=== PATIENT | male | born 1945 | race Caucasian/White ===

== ENCOUNTER 2024-05-21 06:58 | Observation (INO) ==
--- NOTE | 2024-05-21 08:02 | Emergency Department Note ---
Impression & Plan Stroke-like symptoms, Cough, Syncope ED Provider Note Provider: Akin Baltazar MD CHIEF COMPLAINT: Dizziness, cough, fall HISTORY OF PRESENT ILLNESS: Patient is a 79-year-old gentleman past medical history including hypertension and prostate issues presenting here today stating of the past week his intermittent blurry vision and dizziness. Patient states yesterday he did suffer a fall but denies significant injury from this. Fell a week or 2 ago in the [place] walking his dog as well. Patient reports he has had several days of cough as well. Somewhat productive nature of the cough. Has been going to the gym however. Denies any chest pain or abdominal pain. Denies any headache. CT believes he needs in his glasses when his glasses off the blurriness transitions low bit worse. Has noted more when he changes position at times. Has a night Of alcohol every night but denies any daily alcohol use or that he is an alcoholic. Denies any injury to the extremities or significant swelling. Denies numbness or tingling in the extremities or speech issues. Patient states his just concerned that he seemed little bit off and had this slightly off this and by his report. PAST MEDICAL HISTORY: As noted above MEDICATIONS: Reviewed home medications SOCIAL HISTORY: Resides at home PHYSICAL EXAM: GENERAL: alert and oriented in no acute distress on stretcher Head: normocephalic and atraumatic EYES: No injection, discharge or icterus. PERRL, EOMI. NECK: Trachea midline. Supple. ENT: Mucous membranes pink and moist. LUNGS: Airway patent. No retractions. Breath sounds clear with good air entry bilaterally. HEART: Regular rate and rhythm. No chest wall tenderness ABDOMEN: Soft and non-tender, without guarding or rebound. SKIN: Acyanotic, warm, dry, without rashes EXTREMITIES: Without swelling, tenderness or deformity NEUROLOGICAL: No focal deficits. No aphasia. No facial droop or slurred speech. Normal strength and tone in the extremities. Sensation to gross touch normal. Ambulatory without assistance. EK bpm sinus bradycardia first-degree AV block. No PVC or PAC. No acute ST segment elevation or depression with a QTc of 430. CONTINUOUS CARDIAC MONITORING: was ordered and showed a heart rate of 50s bpm in sinus bradycardia first-degree heart block GCS 15. Patient's laboratory studies and imaging reviewed. Differential includes Benign positional vertigo, dehydration, hypovolemia, anemia, tumor, infection, hypoglycemia, electrolyte abnormalities, cardiac sources, intracerebral event, toxicologic, neurologic, URI, pneumonia, CHF, bronchitis as well as other pathologies. IMPRESSION/MEDICAL DECISION MAKING: Patient well-appearing. No fever, tachycardia, hypotension on presentation here. Has had some described mild type falls. States he thinks he just lost balance a little bit. Reports a little bit of blurred vision but no other numbness or tingling or weakness or speech issues reported. He states some of this is associated with position change. X-ray obtained here questions maybe a touch of fluid overload but no evidence of pneumonia. Respiratory viral panel completed look for possible viral infection promoting his cough and symptoms. CT of the head given his falls was obtained to exclude intracranial bleed. Low suspicion for LVO Again they seem almost somewhat provokable at times as well but is able to stand here without issue at this point. Electrolytes and renal function checked. No significant electrolyte abnormalities noted. No leukocytosis or significant anemia. CT questions possible brain infarct/stroke. There is additional Notes per report of small vessel disease. CTAs head and neck to be completed; no significant vascular abnormality noted on these. Respiratory viral panel is negative. Discussed with patient and son. Do recommend we bring him in for further stroke evaluation with MRI. Cough again does not seem bacterial/pneumonia in nature. But the same significant fluid overload clinical exam. Likely more of a viral bronchitis. Given full dose aspirin here. Discussed with the hospitalist team. Patient's son later informed that the patient seemed to be confused this morning and had a very brief syncopal episode with fall to the ground yesterday. Patient's son states the patient tries to minimize things. But the patient is agreeable to stay here for further care and evaluation. DIAGNOSIS: strokelike symptoms, cough, syncope DISPOSITION: Hospitalist will evaluate Patient was agreeable with this plan. Past Med/Surg History Problem List (Updated 05/21/24 @ 12:29 by Akin Baltazar M.D.) Syncope (Acute) Acute bronchitis Cough (Acute) Stroke-like symptoms (Acute) Left hip pain Degenerative joint disease of left hip Medical History (Updated 05/21/24 @ 12:29 by Akin Baltazar M.D.) HTN (hypertension) Gout Surgical History (Updated 10/26/19 @ 16:21 by Dionisio Fregoso PA-C) History of prostate surgery History of bladder surgery Family History (Updated 10/26/19 @ 16:21 by Dionisio Fregoso PA-C) Other Cancer Social History (Updated 10/26/19 @ 16:21 by Dionisio Fregoso PA-C) Smoking Status: Former smoker Hx Alcohol Use: Yes Preferred Language: Lithuanian marital status: Feels Safe at Home: Yes Allergies Allergies Allergy/AdvReac Type Severity Reaction Status Date / Time No Known Allergies Allergy Unknown Verified 10/03/06 17:08 Home Meds Home Medications Medication Instructions Recorded Confirmed allopurinol 300 mg tablet 300 mg PO DAILY 05/21/24 05/21/24 hydrochlorothiazide 25 mg tablet 25 mg PO DAILY 05/21/24 05/21/24 lisinopril 20 mg tablet 20 mg PO DAILY 05/21/24 05/21/24 metoprolol tartrate 25 mg tablet 25 mg PO BID 05/21/24 05/21/24 Results & Data (ED) Vital Signs Vital Signs - 24 hr 05/21/24 07:03 05/21/24 07:18 05/21/24 07:18 Temperature 36.4 C L Temperature Source Skin Pulse Rate 57 L Pulse Rate from SpO2 Sensor Pulse Rhythm Respiratory Rate 19 Respiratory Effort / Characteristics Non-Labored Spontaneous Non-Labored Spontaneous Respiratory Depth Normal Normal Respiratory Pattern Regular Regular Blood Pressure 132/73 Blood Pressure Mean 92 Pulse Oximetry 95 Oxygen Delivery Method Room Air Room Air Room Air Sepsis Recent Fever Within 48 Hours No Sepsis New/Unexplained Change in Mental Status N/A Sepsis Action Taken by Nursing No Action Required Pulse Oximetry Post Tiitration 96 05/21/24 07:18 05/21/24 07:29 05/21/24 07:33 Temperature Temperature Source Pulse Rate 55 L 57 L 55 L Pulse Rate from SpO2 Sensor 55 L Pulse Rhythm Regular Respiratory Rate 20 26 H Respiratory Effort / Characteristics Respiratory Depth Respiratory Pattern Blood Pressure 136/86 Blood Pressure Mean 102 Pulse Oximetry 96 97 Oxygen Delivery Method Room Air Room Air Sepsis Recent Fever Within 48 Hours Sepsis New/Unexplained Change in Mental Status Sepsis Action Taken by Nursing Pulse Oximetry Post Tiitration 05/21/24 08:00 05/21/24 08:00 05/21/24 08:00 Temperature Temperature Source Pulse Rate Pulse Rate from SpO2 Sensor Pulse Rhythm Respiratory Rate Respiratory Effort / Characteristics Respiratory Depth Respiratory Pattern Blood Pressure 139/92 139/92 139/92 Blood Pressure Mean 114 114 114 Pulse Oximetry Oxygen Delivery Method Sepsis Recent Fever Within 48 Hours Sepsis New/Unexplained Change in Mental Status Sepsis Action Taken by Nursing Pulse Oximetry Post Tiitration 05/21/24 08:06 05/21/24 08:39 05/21/24 10:40 Temperature Temperature Source Pulse Rate 55 L 52 L 53 L Pulse Rate from SpO2 Sensor 54 L 52 L Pulse Rhythm Regular Respiratory Rate 18 23 18 Respiratory Effort / Characteristics Respiratory Depth Respiratory Pattern Blood Pressure 139/92 126/61 Blood Pressure Mean 107 82 Pulse Oximetry 96 96 95 Oxygen Delivery Method Room Air Room Air Room Air Sepsis Recent Fever Within 48 Hours Sepsis New/Unexplained Change in Mental Status Sepsis Action Taken by Nursing Pulse Oximetry Post Tiitration Laboratory Data 05/21/24 07:38 05/21/24 07:38 Lab Results 05/21/24 Range/Units 07:38 WBC 10.34 (4.8-10.8) K/ul RBC 5.49 (4.70-6.10) M/uL Hgb 16.1 (14.0-18.0) g/dl Hct 48.8 (42.0-52.0) % MCV 88.9 (80.0-100.0) fL MCH 29.3 (25.0-34.0) pg MCHC 33.0 (32.0-36.0) g/dL RDW Std Deviation 42.7 (36.4-46.3) fL RDW Coeff of [place] 13.2 (11.5-14.5) % Plt Count 257 (130-400) K/uL MPV 9.6 (9.4-12.4) fL Immature Gran % (Auto) 2.5 % Neut % (Auto) 64.5 % Lymph % (Auto) 18.8 % [place] % (Auto) 11.0 % Eos % (Auto) 1.8 % Baso % (Auto) 1.4 % Neut # (Auto) 6.67 H (1.40-6.50) K/uL Lymph # (Auto) 1.94 (1.20-3.40) K/uL [place] # (Auto) 1.14 H (0.11-0.59) K/uL Eos # (Auto) 0.19 (0.00-0.50) K/uL Baso # (Auto) 0.14 (0.00-0.20) K/uL Immature Gran # (Auto) 0.26 H (0.01-0.20) K/uL PT 11.2 (9.0-12.0) Seconds INR 1.0 (0.9-1.1) Sodium 136 (136-145) mmol/L Potassium 4.8 (3.5-5.1) mmol/L Chloride 101 (98-107) mmol/L Carbon Dioxide 29 (21-32) mmol/L Anion Gap 6 (3-11) BUN 20 (6-23) mg/dl Creatinine 1.35 (0.6-1.4) mg/dl Est Cr Clr Drug Dosing 53.4 ml/min eGFR 53.74 BUN/Creatinine Ratio 14.8 (10-20) Glucose 101 H (70-99(Fasting)) mg/dl Calcium 9.4 (8.6-10.3) mg/dl Total Bilirubin 0.5 (0.2-1.0) mg/dl AST 26 (13-39) U/L ALT 21 (7-52) U/L Alkaline Phosphatase 62 (34-104) U/L Troponin I High Sens 5.5 (0-20) pg/ml Total Protein 7.2 (6.0-8.3) gm/dl Albumin 3.9 (3.4-5.0) gm/dl Globulin 3.3 (2.5-4.0) gm/dl Albumin/Globulin Ratio 1.2 (0.9-2) Adenovirus (PCR) Not Detected (NotDetected) B. pertussis DNA (PCR) Not Detected (NotDetected) B.parapertussis DNA PCR Not Detected (NotDetected) C. pneumoniae DNA (PCR) Not Detected (NotDetected) Coronavirus OC43 (PCR) Not Detected (NotDetected) Coronavirus HKU1 (PCR) Not Detected (NotDetected) Coronavirus 229E (PCR) Not Detected (NotDetected) SARS-CoV-2 (PCR) Not Detected (NotDetected) Coronavirus NL63 (PCR) Not Detected (NotDetected) Human Metapneumovir PCR Not Detected (NotDetected) Influenza Type A (PCR) Not Detected (NotDetected) Influenza Type B (PCR) Not Detected (NotDetected) M. pneumoniae (PCR) Not Detected (NotDetected) Parainfluenza 1 (PCR) Not Detected (NotDetected) Parainfluenza 2 (PCR) Not Detected (NotDetected) Parainfluenza 3 (PCR) Not Detected (NotDetected) Parainfluenza 4 (PCR) Not Detected (NotDetected) RSV (PCR) Not Detected (NotDetected) Entero/Rhino (PCR) Not Detected (NotDetected) Administered Medications Discontinued Medications Aspirin (Aspirin Chew 324 Mg) 324 mg PO NOW STA Stop: 05/21/24 09:37 Last Admin: 05/21/24 09:59 Dose: 324 mg Documented By: SRL Atorvastatin Calcium (Atorvastatin 40 Mg Tab) 40 mg PO ONE ONE Stop: 05/21/24 10:46 Last Admin: 05/21/24 11:32 Dose: 40 mg Documented By: SRL Azithromycin (Azithromycin 250 Mg Tab) 500 mg PO ONE ONE Stop: 05/21/24 10:46 Last Admin: 05/21/24 11:32 Dose: 500 mg Documented By: SRL Ioversol (Optiray 320 125ml) 112 ml IV ONCE ONE Stop: 05/21/24 09:29 Last Admin: 05/21/24 09:28 Dose: 112 ml Documented By: PRIMITIVO Imaging Data Radiologist's Impression: Head CT 05/21/24 07:18 EXAM: CT head/brain wo con CLINICAL HISTORY: blurred vision, fall, dizzy TECHNIQUE: Axial non-contrast CT scan of the brain was performed from the skull base to the high parietal region. One of the following dose reduction techniques were utilized for this exam: Automated exposure control, adjustment of the mA and/or kV according to patient size, use of iterative reconstruction. COMPARISON: None. FINDINGS: Brain Parenchyma: Left parietal subcortical white matter 8mm hypodensity seen, could be recent lacunar infarct Scattered ill-defined hypodense areas noted in the subcortical, periventricular and deep white matter bilaterally, suggestive of microvascular ischemic changes. Normal attenuation of the cerebellum, and brainstem. No evidence of hemorrhage, or mass effect. Ventricular System: The ventricular system, cortical sulci and basal cisterns are prominent consistent with senile changes. Subarachnoid Spaces: Normal sulci and cisterns. No evidence of subarachnoid hemorrhage or extra-axial fluid collections. Sinuses: Clear paranasal sinuses. No evidence of sinusitis or mucosal thickening. Mastoid Air Cells: Clear mastoid air cells. No evidence of mastoiditis. Skull: Normal skull morphology. IMPRESSION: 1. Left parietal subcortical white matter 8mm hypodensity seen, could be recent lacunar infarct. 2. Small vessel ischemic vasculopathy-related changes. 3. Age-related involutional changes. 4. If clinically needed, MRI with diffusion advised for assessment of recent ischemic infracts. Electronically signed by Betito Rodriguez 05-21-2024 08:50 AM Chest X-Ray 05/21/24 07:23 EXAM: XR chest 1V portable CLINICAL HISTORY: Cough TECHNIQUE: An X-ray image of the chest is obtained in AP projection. COMPARISON: No prior studies are available for comparison. FINDINGS: Pulmonary Parenchyma: Prominent both hilar and broncho vascular markings raising the possibility of pulmonary edema. No evidence of consolidation, collapse, or focal opacities. No pulmonary nodules are identified. No evidence of pleural effusion or pleural thickening. Heart and Mediastinum: Heart size and shape are normal. No mediastinal widening or masses. No hilar or mediastinal lymphadenopathy. Bony Thorax: Bony thorax appears intact without fractures or deformities. Soft Tissues: Soft tissues overlying the chest wall are unremarkable. IMPRESSION: Prominent both hilar and broncho vascular markings raising the possibility of pulmonary edema. No acute cardiopulmonary abnormalities are identified. Electronically signed by Betito Rodriguez 05-21-2024 08:12 AM Head CTA 05/21/24 09:12 CTA ANGIOGRAPHY OF THE HEAD CLINICAL HISTORY: dizzy,vision off, ?stroke on CTH COMPARISON STUDY: Head CT performed earlier today. TECHNIQUE: Helical axial images of the head were obtained following uneventful intravenous administration of 112 cc of Optiray. Sagittal and coronal reconstructions were viewed as well as maximal intensity projections on an independent 3-D workstation. Automated exposure control was utilized for the study. A dose lowering technique was utilized adhering to the principles of ALARA. CT DOSE: 571.48 mGy.cm FINDINGS: No acute intracranial hemorrhage is identified on contrast enhanced exam. Ventricular system is normal. Basal cisterns are patent. There are no extra axial collections. There is mild plaque within the bilateral cavernous carotids without stenosis. The bilateral M1, M2, A1 and A2 segments are patent. There is no intracranial aneurysm. There is mild plaque within the intracranial portions of the vertebral arteries without significant stenosis. The basilar artery and posterior cerebral arteries are patent. No vessel occlusion is identified within the intracranial circulation. IMPRESSION: No intracranial vessel occlusion. No intracranial aneurysm. ACT 112: Negative or not required by law. Electronically signed by: Jerzy Sprague M.D. 05/21/2024 10:00 AM Neck CTA 05/21/24 09:12 CT ANGIOGRAPHY OF THE NECK WITH CONTRAST CLINICAL HISTORY: dizzy,vision off, ?stroke on CTH COMPARISON STUDY: No previous studies for comparison. Technique: CT angiography of the carotid and vertebral arteries was obtained using Optiray and 3D reconstruction on an independent workstation. NASCET criteria was utilized. Automated exposure control was utilized for the study. A dose lowering technique was utilized adhering to the principles of ALARA. Findings: Visualized portions of the lung apices are unremarkable. There is an old, healed left clavicular fracture. A 2.4 cm left lobe thyroid nodule is incidentally noted. There is no cervical lymphadenopathy. No cervical spine fractures are present. The bilateral common carotid, cervical internal carotid and vertebral arteries are patent. There is mild plaque within the proximal bilateral internal carotid arteries without resultant stenosis. There is no dissection or aneurysm within the neck. CTA of the head will be reported separately. IMPRESSION: No stenosis or dissection within the bilateral common carotid, cervical internal carotid or vertebral arteries. ACT 112: Negative or not required by law. Electronically signed by: Jerzy Sprague M.D. 05/21/2024 9:47 AM Discharge Plan Visit Data Chief Complaint: Shortness of Breath/Dyspnea Stated Complaint: LIGHT HEADED,DIZZY,BLURRY VISION,SOB ED Provider: Akin Baltazar Discharge Problem: Stroke-like symptoms, Cough, Syncope Patient Disposition: Being Evaluated by Hospitalist Discharge Instructions Interventions: ED Discharge Assessment Last Done: 05/21/24 11:28 Forms Stand Alone Forms: My [employer] Prescriptions Prescriptions: No Action lisinopril 20 mg tablet 20 mg PO DAILY allopurinol 300 mg tablet 300 mg PO DAILY hydrochlorothiazide 25 mg tablet 25 mg PO DAILY metoprolol tartrate 25 mg tablet 25 mg PO BID Referrals Referrals: Terence Mercado DO [Surgeon] -
[2024-05-21 08:10] LABS: Basophils # (auto) 0.14 K/uL (0.00-0.20); Basophils % (auto) 1.4 %; Eosinophils # (auto) 0.19 K/uL (0.00-0.50); Eosinophils % (auto) 1.8 %; Hematocrit (blood only) 48.8 % (42.0-52.0); Hemoglobin 16.1 g/dl (14.0-18.0); Immature Granulocytes # (auto) 0.26 K/uL (0.01-0.20); Immature Granulocytes % (auto) 2.5 %; Lymphocytes # (auto) 1.94 K/uL (1.20-3.40); Lymphocytes % (auto) 18.8 %; Mean Corpuscular Hemoglobin 29.3 pg (25.0-34.0); Mean Corpuscular Volume 88.9 fL (80.0-100.0); Mean Platelet Volume 9.6 fL (9.4-12.4); Monocytes # (auto) 1.14 K/uL (0.11-0.59); Neutrophils # (auto) 6.67 K/uL (1.40-6.50); Neutrophils % (auto) 64.5 %; Platelet Count 257 K/uL (130-400); RDW Coefficient of Variation 13.2 % (11.5-14.5); RDW Standard Deviation 42.7 fL (36.4-46.3); Red Blood Count 5.49 M/uL (4.70-6.10); White Blood Count 10.34 K/ul (4.8-10.8)
--- NOTE | 2024-05-21 08:12 | XRay Report ---
EXAM: XR chest 1V portable CLINICAL HISTORY: Cough TECHNIQUE: An X-ray image of the chest is obtained in AP projection. COMPARISON: No prior studies are available for comparison. FINDINGS: Pulmonary Parenchyma: Prominent both hilar and broncho vascular markings raising the possibility of pulmonary edema. No evidence of consolidation, collapse, or focal opacities. No pulmonary nodules are identified. No evidence of pleural effusion or pleural thickening. Heart and Mediastinum: Heart size and shape are normal. No mediastinal widening or masses. No hilar or mediastinal lymphadenopathy. Bony Thorax: Bony thorax appears intact without fractures or deformities. Soft Tissues: Soft tissues overlying the chest wall are unremarkable. IMPRESSION: Prominent both hilar and broncho vascular markings raising the possibility of pulmonary edema. No acute cardiopulmonary abnormalities are identified. Electronically signed by Betito Rodriguez 05-21-2024 08:12 AM
[2024-05-21 08:23] LABS: Albumin Globulin Ratio 1.2 (0.9-2); Albumin Level 3.9 gm/dl (3.4-5.0); BUN Creatinine Ratio 14.8 (10-20); Bilirubin,Total 0.5 mg/dl (0.2-1.0); Calcium 9.4 mg/dl (8.6-10.3); Creatinine Clr Calc Pharmacy 53.4 ml/min; Globulin 3.3 gm/dl (2.5-4.0); Potassium 4.8 mmol/L (3.5-5.1); Total Protein 7.2 gm/dl (6.0-8.3)
[2024-05-21 08:30] LABS: Troponin I High Sensitivity 5.5 pg/ml (0-20)
[2024-05-21 08:31] LABS: Prothrombin Time 11.2 Seconds (9.0-12.0)
--- NOTE | 2024-05-21 08:50 | CT Scan Report ---
EXAM: CT head/brain wo con CLINICAL HISTORY: blurred vision, fall, dizzy TECHNIQUE: Axial non-contrast CT scan of the brain was performed from the skull base to the high parietal region. One of the following dose reduction techniques were utilized for this exam: Automated exposure control, adjustment of the mA and/or kV according to patient size, use of iterative reconstruction. COMPARISON: None. FINDINGS: Brain Parenchyma: Left parietal subcortical white matter 8mm hypodensity seen, could be recent lacunar infarct Scattered ill-defined hypodense areas noted in the subcortical, periventricular and deep white matter bilaterally, suggestive of microvascular ischemic changes. Normal attenuation of the cerebellum, and brainstem. No evidence of hemorrhage, or mass effect. Ventricular System: The ventricular system, cortical sulci and basal cisterns are prominent consistent with senile changes. Subarachnoid Spaces: Normal sulci and cisterns. No evidence of subarachnoid hemorrhage or extra-axial fluid collections. Sinuses: Clear paranasal sinuses. No evidence of sinusitis or mucosal thickening. Mastoid Air Cells: Clear mastoid air cells. No evidence of mastoiditis. Skull: Normal skull morphology. IMPRESSION: 1. Left parietal subcortical white matter 8mm hypodensity seen, could be recent lacunar infarct. 2. Small vessel ischemic vasculopathy-related changes. 3. Age-related involutional changes. 4. If clinically needed, MRI with diffusion advised for assessment of recent ischemic infracts. Electronically signed by Betito Rodriguez 05-21-2024 08:50 AM
[2024-05-21 08:52] LABS: Adenovirus PCR Not Detected (NotDetected); Bordetella parapertussis PCR Not Detected (NotDetected); Bordetella pertussis PCR Not Detected (NotDetected); Chlamydia pneumoniae PCR Not Detected (NotDetected); Coronavirus 229E PCR Not Detected (NotDetected); Coronavirus CoV-2 (COVID19)PCR Not Detected (NotDetected); Coronavirus HKU1 PCR Not Detected (NotDetected); Coronavirus NL63 PCR Not Detected (NotDetected); Coronavirus OC43PCR Not Detected (NotDetected); Human Metapneumovirus PCR Not Detected (NotDetected); Influenza A PCR Not Detected (NotDetected); Influenza B PCR Not Detected (NotDetected); Mycoplasma pneumoniae PCR Not Detected (NotDetected); Parainfluenza Virus 1 PCR Not Detected (NotDetected); Parainfluenza Virus 2 PCR Not Detected (NotDetected); Parainfluenza Virus 3 PCR Not Detected (NotDetected); Parainfluenza Virus 4 PCR Not Detected (NotDetected); Respiratory Syncytial VirusPCR Not Detected (NotDetected); Rhinovirus/Enterovirus PCR Not Detected (NotDetected)
[2024-05-21] MEDS: OPTIRAY 320 125ml IV ONE (09:28)
--- NOTE | 2024-05-21 09:49 | CT Scan Report ---
CT ANGIOGRAPHY OF THE NECK WITH CONTRAST CLINICAL HISTORY: dizzy,vision off, ?stroke on CTH COMPARISON STUDY: No previous studies for comparison. Technique: CT angiography of the carotid and vertebral arteries was obtained using Optiray and 3D rec onstruction on an independent workstation. NASCET criteria was utilized. Automated exposure control was utilized for the study. A dose lowering technique was utilized adhering to the principles of ALA RA. Findings: Visualized portions of the lung apices are unremarkable. There is an old, healed left clavi cular fracture. A 2.4 cm left lobe thyroid nodule is incidentally noted. There is no cervical lymphad enopathy. No cervical spine fractures are present. The bilateral common carotid, cervical internal ca rotid and vertebral arteries are patent. There is mild plaque within the proximal bilateral internal carotid arteries without resultant stenosis. There is no dissection or aneurysm within the neck. CTA of the head will be reported separately. IMPRESSION: No stenosis or dissection within the bilateral common carotid, cervical internal carotid or vertebral arteries. ACT 112: Negative or not required by law. Electronically signed by: Jerzy Sprague M.D. 05/21/2024 9:47 AM
[2024-05-21] MEDS: ASPIRIN CHEW 324 MG PO STA (09:59)
--- NOTE | 2024-05-21 10:03 | CT Scan Report ---
CTA ANGIOGRAPHY OF THE HEAD CLINICAL HISTORY: dizzy,vision off, ?stroke on CTH COMPARISON STUDY: Head CT performed earlier today. TECHNIQUE: Helical axial images of the head were obtained following uneventful intravenous administr ation of 112 cc of Optiray. Sagittal and coronal reconstructions were viewed as well as maximal inten sity projections on an independent 3-D workstation. Automated exposure control was utilized for the study. A dose lowering technique was utilized adhering to the principles of ALARA. CT DOSE: 571.48 mGy.cm FINDINGS: No acute intracranial hemorrhage is identified on contrast enhanced exam. Ventricular syste m is normal. Basal cisterns are patent. There are no extra axial collections. There is mild plaque wi thin the bilateral cavernous carotids without stenosis. The bilateral M1, M2, A1 and A2 segments are patent. There is no intracranial aneurysm. There is mild plaque within the intracranial portions of t he vertebral arteries without significant stenosis. The basilar artery and posterior cerebral arterie s are patent. No vessel occlusion is identified within the intracranial circulation. IMPRESSION: No intracranial vessel occlusion. No intracranial aneurysm. ACT 112: Negative or not required by law. Electronically signed by: Jerzy Sprague M.D. 05/21/2024 10:00 AM
[2024-05-21] MEDS ORDERED: PHARMACIST DISCHARGE MED REC CONSULT PRN (10:32)
[2024-05-21] MEDS ORDERED: ACETAMINOPHEN 325 MG TAB PO PRN (10:40)
--- NOTE | 2024-05-21 10:56 | History & Physical Report ---
Date of Service May 21, 2024 Assessment & Plan (1) Acute bronchitis: Plan: Assessment: 1. Probable acute bronchitis. Productive sputum with cough over the last 3 to 4 days. Chest x-ray is negative. Sputum cultures ordered. Oral azithromycin for now. 2. Possible subacute stroke left parietal on noncontrast CT of the brain. 8 mm. CTAs of the head and neck are negative for critical findings. MRI of the brain ordered. 325 of aspirin given. Continue 81 of aspirin daily beginning tomorrow. Begin statin therapy at 40 mg daily. Placed on stroke protocol. Neurology consulted-I personally contacted neurology on-call. Permissive hypertension for now. 3. Possible strokelike symptoms with some lightheadedness and blurry vision. However this could be related to the combination of alcohol and NyQuil. Patient is on a stroke protocol we will continue to monitor. He is completely asymptomatic now with an NIH of 0. 4. 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 Will monitor carefully for withdrawal at this time there is no evidence of that and if he is only drinking 1 drink a day he is probably low risk for withdrawal. 5. Ex tobacco abuse in the form of chewing tobacco. Currently uses nicotine pouches. 6. History of hypertension. Will allow for permissive hypertension during stroke workup. 7. History of gout in the past. 8. Sinus bradycardia. 53 bpm. On beta-asael. Will hold this at this time for the stroke protocol permissive hypertension tension. Check a TSH in the AM. Plan: As described above. Please refer to orders for further planning. History of Present Illness Chief Complaint: URI symptoms-productive cough. Blurry vision. falls x 2 over the last couple weeks. Primary Care Provider: Danny Law, This is a pleasant 79-year-old male who last week while [place] in [place] [employer] and had a mechanical fall. Over the last several days he has had a cough which has been productive with greenish-yellow sputum. Therefore, the last several nights he been taking NyQuil at night. In addition he typically has a shot of bourbon every night. 2 or 3 nights ago he had approximately 3 shots of bourbon in combination with the NyQuil and had a fall through the night. He sustained no injuries. Today he woke up and had some mildly blurry vision. This seemed to resolve after his coffee. Upon speaking to his and his son who is convinced to come to the ER for further evaluation and workup. In the ER he had a negative bio fire. His laboratory studies were essentially unremarkable. Chest x-ray was negative. He had a noncontrast CT of the brain which showed a possible left-sided 8 mm parietal infarct. Once this was obtained he underwent CTAs of the head and neck which were negative for critical stenoses or significant findings. He received 325 of aspirin in the ER. We were notified admit the patient for further workup. We have ordered a sputum culture, oral azithromycin, placed the patient on the stroke protocol. With consulted neurology. Will continue 81 of aspirin daily. Echocardiogram. MRI of the brain. Will check a repeat troponin for completeness. Will start the patient on statin therapy as well. Will hold the patient's antihypertensives and rule out for permissive hypertension over the next 24 hours pending MRI results and stroke workup. Vital signs are stable but he is noted to be mildly bradycardic at 53 bpm but he is on metoprolol at home. Will see what his heart rate does with this on hold. With also ordered a TSH. Allergies Allergy/AdvReac Type Severity Reaction Status Date / Time No Known Allergies Allergy Unknown Verified 10/03/06 17:08 Home Medications Medication Instructions Recorded Confirmed Type allopurinol 300 mg tablet 300 mg PO DAILY 05/21/24 05/21/24 History hydrochlorothiazide 25 mg tablet 25 mg PO DAILY 05/21/24 05/21/24 History lisinopril 20 mg tablet 20 mg PO DAILY 05/21/24 05/21/24 History metoprolol tartrate 25 mg tablet 25 mg PO BID 05/21/24 05/21/24 History Past Med/Surg History Problem List (Updated 05/21/24 @ 11:02 by Wayne Huston, PhD, DO) Acute bronchitis Cough (Acute) Stroke-like symptoms (Acute) Left hip pain Degenerative joint disease of left hip Medical History (Updated 05/21/24 @ 11:02 by Wayne Huston, PhD, DO) HTN (hypertension) Gout Surgical History (Updated 10/26/19 @ 16:21 by Dionisio Fregoso PA-C) History of prostate surgery History of bladder surgery Family History (Updated 10/26/19 @ 16:21 by Dionisio Minor, PA-C) Other Cancer Social History (Updated 10/26/19 @ 16:21 by Dionsiio Fregoso PA-C) Smoking Status: Former smoker Hx Alcohol Use: Yes Preferred Language: Bulgarian marital status: Feels Safe at Home: Yes Review of Systems Review of Systems: A 10 point review of system was obtained and unless otherwise stated here or in history of present illness are negative and noncontributory to chief complaint. Physical Exam Physical Exam: In General: In general this is a pleasant 79-year-old male who is alert and oriented x 3 at the time of my exam. He is in no acute distress. He is a retired senior environmental consultant and also served in the [employer]". HEENT: Normocephalic atraumatic pupils are equal round and reactive to light bilaterally. No scleral icterus no conjunctival injection external auditory canals are patent septum is in the midline nose is without discharge oral mucosa is pink and moist without lesion. NECK: Supple no rigidity no lymphadenopathy no thyromegaly no carotid bruits no JVD no masses. HEART: Regular rate and rhythm I do not appreciate any ectopy or rub. No murmur. LUNGS: Coarse bilaterally with occasional expiratory wheezes and lower lobe rhonchi. ABDOMEN: Soft nontender, no rebound, no peritoneal signs, positive bowel sounds, no appreciable organomegaly. EXTREMITIES: Intact, no peripheral cyanosis, clubbing or edema. Strength is 5 out of 5 in extremities x4, no pathological reflexes, no cerebellar sign.. NEUROLOGICAL: Cranial nerves II through XII are grossly intact with no focal deficit elicited upon examination. No tremor. Results & Data Results & Data Vital Signs (Past 12 Hours) Vital Signs Temp Pulse Resp BP Pulse Ox O2 Del Method 05/21/24 08:39 52 L 23 126/61 96 Room Air 05/21/24 08:06 55 L 18 139/92 96 Room Air 05/21/24 08:00 139/92 05/21/24 08:00 139/92 05/21/24 08:00 139/92 05/21/24 07:33 55 L 26 H 136/86 97 Room Air 05/21/24 07:29 57 L 05/21/24 07:18 55 L 20 96 Room Air 05/21/24 07:18 Room Air 05/21/24 07:18 Room Air 05/21/24 07:03 36.4 C L 57 L 19 132/73 95 Room Air Code Status & VTE Plan Code Status Full code, I personally discussed with the patient at the bedside today. VTE Prophylaxis Plan VTE Prophylaxis will be ordered: Yes PG Care Time/CCT Total # of Minutes Spent Total Time Spent with Patient: Total time spent is greater than 50% in coordination of care (as documented) at patient's floor/unit and/or counseling patient: Coding Level of Care Code 17996 INT INP/OBS CARE 3/75MIN Diagnoses Acute bronchitis J20.9
[2024-05-21] MEDS: AZITHROMYCIN 250 MG TAB PO ONE (11:32)
[2024-05-21] MEDS: ATORVASTATIN 40 MG TAB PO ONE (11:32)
--- NOTE | 2024-05-21 13:02 | Magnetic Resonance Report ---
MRI OF THE BRAIN WITHOUT CONTRAST CLINICAL HISTORY: Possible subacute stroke on head CT. COMPARISON STUDY: Head CT and CTA of the head performed earlier today. TECHNIQUE: Utilizing a 3 Sarahi magnet and dedicated coil, multiplanar, multiecho imaging of the brain was performed without IV contrast. FINDINGS: There is a small 5 mm hyperintense focus within the right ortega radiata on the diffusion-w eighted sequence on image 19 of 32. This is not well visualized on the ADC sequence and is likely iso intense. Corresponding T2 hyperintense focus is noted. No additional foci of restricted diffusion are present. The possible left parietal infarct on head CT performed earlier today was chronic. Ventricu lar system is unremarkable. Basal cisterns are patent. There are no extra-axial collections. Flow-voi ds for the major intracranial vessels are present. Note is made of a 1.2 x 1.2 cm round mass-like int ra-axial T2 hyperintense focus at the right pontomedullary junction on T2-weighted sequence image 8 o f 32. Numerous white matter T2 hyperintense foci suggest small vessel disease. Calvarial signal is no rmal. IMPRESSION: 1. The possible left parietal lobe infarct on head CT from earlier today was chronic and favors small vessel disease. 2. Small 5 mm focus of restricted diffusion within the right ortega radiata. This favors a small suba cute infarct. 3. 1.2 cm round circumscribed mass-like intra-axial T2 hyperintense lesion at the right pontomedullar y junction. This is indeterminate and may represent a neoplasm. Follow-up evaluation with postcontras t MRI is recommended. Neurology consultation is also suggested. ACT 112: Negative or not required by law. Electronically signed by: Jerzy Sprague M.D. 05/21/2024 1:00 PM
[2024-05-21 13:43] LABS: Appearance Urine Clear (Clear); Bilirubin Urine Negative (Negative); Blood Urine Negative (Negative); Color Urine Yellow; Glucose Urine UA Negative (Negative); Ketones Urine Negative (Negative); Leukocyte Esterase Urine Negative (Negative); Nitrite Urine Negative (Negative); Protein Urine Negative (Negative); Specific Gravity Urine 1.023 (1.000-1.030); Urobilinogen Urine Negative (Negative)
[2024-05-21] MEDS: GADOBUTROL 65ML VIAL IV ONE (16:57)
--- NOTE | 2024-05-21 18:41 | XCELERA ---
[id number]
--- NOTE | 2024-05-21 19:39 | Magnetic Resonance Report ---
EXAM: MR brain wo/w con CLINICAL HISTORY: Earlier today had a MRI Brain without contrast, recommended post contrast. ;blurred vision, fall, dizzy. TECHNIQUE: MRI of the brain was performed with and without intravenous contrast administration. Sequences obtained include pre-contrast and post-contrast T1-weighted, T2-weighted, FLAIR (Fluid-Attenuated Inversion Recovery), DWI (Diffusion-Weighted Imaging), and ADC (Apparent Diffusion Coefficient) sequences. COMPARISON: CT dated 05/21/2024. FINDINGS: Brain Parenchyma: No evidence of acute hemorrhage. Wesley-white matter differentiation is preserved. Multiple foci of low T2 signal are seen within the white matter of both cerebral hemispheres measuring up to 12 mm in the left parietal subcortical region. Ventricles and Sulci: Prominent lateral ventricles. Accentuated cortical sulci. Brainstem and Cerebellum: Normal appearance of the cerebellum without focal lesions or abnormal enhancement. There is a 1.3 x 1.3 cm partially exophytic space-occupying lesion is seen in the right side of the medulla oblongata showing low T1 signal with no appreciable postcontrast enhancement. This lesion was not evident on the prior CT. Vessels: Intracranial vessels appear normal without evidence of vascular malformations or aneurysms. Skull and Calvarium: No evidence of skull vault lesions or abnormal marrow signal within the calvarium. Post-Contrast Findings: No abnormal enhancement of the brain parenchyma or meninges. IMPRESSION: 1. Right side brainstem space-occupying lesion with no appreciable postcontrast enhancement. This lesion was not evident on the prior CT. 2. Involutional brain changes. 3. Bilateral cerebral low T1 signal foci. 4. Complete MR study with diffusion sequences is mandatory for the characterization of the above-noted lesions. 5. Correlate with clinical findings. Electronically signed by Betito Rodriguez 05-21-2024 7:39 PM
[2024-05-22] MEDS: MELATONIN 3 MG TAB PO PRN (00:11)
--- NOTE | 2024-05-22 05:31 | Electrocardiogram Report ---
Test Reason : Blood Pressure : */* mmHG Vent. Rate : 58 BPM Atrial Rate : 58 BPM P-R Int : 240 ms QRS Dur : 96 ms QT Int : 440 ms P-R-T Axes : 62 55 44 degrees QTcB Int : 431 ms Sinus bradycardia with 1st degree A-V block When compared with ECG of 25-Sep-2006 11:29, No significant change Confirmed by Celestine Barajas ([id number]) on 05/22/2024 5:30:46 AM Referred By: Confirmed By: Celestine Barajas
[2024-05-22 06:36] LABS: Basophils # (auto) 0.12 K/uL (0.00-0.20); Basophils % (auto) 1.1 %; Eosinophils # (auto) 0.22 K/uL (0.00-0.50); Eosinophils % (auto) 2.1 %; Hematocrit (blood only) 46.8 % (42.0-52.0); Hemoglobin 15.6 g/dl (14.0-18.0); Immature Granulocytes # (auto) 0.21 K/uL (0.01-0.20); Lymphocytes # (auto) 2.08 K/uL (1.20-3.40); Lymphocytes % (auto) 19.7 %; Mean Corpuscular Hemoglobin 29.3 pg (25.0-34.0); Mean Corpuscular Hgb Conc 33.3 g/dL (32.0-36.0); Mean Corpuscular Volume 87.8 fL (80.0-100.0); Mean Platelet Volume 9.3 fL (9.4-12.4); Monocytes # (auto) 1.15 K/uL (0.11-0.59); Monocytes % (auto) 10.9 %; Neutrophils # (auto) 6.76 K/uL (1.40-6.50); Neutrophils % (auto) 64.2 %; Platelet Count 254 K/uL (130-400); RDW Coefficient of Variation 13.1 % (11.5-14.5); RDW Standard Deviation 42.1 fL (36.4-46.3); Red Blood Count 5.33 M/uL (4.70-6.10); White Blood Count 10.54 K/ul (4.8-10.8)
[2024-05-22 07:00] LABS: Albumin Level 3.7 gm/dl (3.4-5.0); Bilirubin,Total 0.5 mg/dl (0.2-1.0); Calcium 9.1 mg/dl (8.6-10.3)
[2024-05-22 07:06] LABS: Albumin Globulin Ratio 1.2 (0.9-2); BUN Creatinine Ratio 15.7 (10-20); Chol HDL Ratio 2.9 (0-5); Creatinine Clr Calc Pharmacy 63.8 ml/min; Total Protein 6.7 gm/dl (6.0-8.3)
[2024-05-22 07:18] LABS: Thyroid Stimulating Hormone 3.245 uIu/ml (0.300-4.500)
[2024-05-22 08:32] LABS: Estimated Average Glucose 108 mg/dl; Hemoglobin A1C 5.4 % (4.5-5.6)
[2024-05-22] MEDS: ATORVASTATIN 40 MG TAB PO SCH (09:13)
[2024-05-22] MEDS: AZITHROMYCIN 250 MG TAB PO SCH (09:13)
[2024-05-22] MEDS: ASPIRIN 81 MG ECTAB PO SCH (09:13)
[2024-05-22] MEDS: allopurinoL 300 MG TAB PO SCH (09:13)
--- NOTE | 2024-05-22 10:14 | Hospitalist Progress Note ---
Date of Service May 22, 2024 Assessment & Plan (1) Stroke: Plan: Patient admitted with some dizziness and strokelike symptoms lightheadedness and blurry vision. Possible subacute stroke left parietal on noncontrast CT of the brain CT angio head and neck did not show any occluded vessels However MRI MRI showed evidence of possible left parietal lobe infarct Also shows 1.2 cm round circumscribed masslike intra-axial lesion in the right pontomedullary junction, this was also seen on the MRI with contrast continue [facility]SA Neurology on board (2) Brain mass: Plan: Initial MRI showed evidence of possible left parietal lobe infarct Also shows 1.2 cm round circumscribed masslike intra-axial lesion in the right pontomedullary junction, this was also seen on the MRI with contrast Neurology consulted (3) Acute bronchitis: Plan: 1. Probable acute bronchitis. Productive sputum with cough over the last 3 to 4 days. Chest x-ray is negative. Sputum cultures ordered. Oral azithromycin for now. Other issues: 4. 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 Will monitor carefully for withdrawal at this time there is no evidence of that and if he is only drinking 1 drink a day he is probably low risk for withdrawal. 5. Ex tobacco abuse in the form of chewing tobacco. Currently uses nicotine pouches. 6. History of hypertension. Will allow for permissive hypertension during stroke workup. 7. History of gout in the past. 8. Sinus bradycardia. 53 bpm. On beta-asael. Will hold this at this time for the stroke protocol permissive hypertension tension. Check a TSH in the AM. Plan: As described above. Please refer to orders for further planning. Plan awating eval by neurology Admission and Anticipated Discharge Date Admission Date: May 21, 2024 Subjective Patient seen and examined today, still coughing and bringing up scant sputum Review of Systems Review of Systems: All systems reviewed are negative, apart from the ones contained in the history. Physical Exam Physical Exam: The patient is awake, alert and oriented 3, well developed and well nourished, normocephalic and atraumatic, lying in bed and in no acute distress. HEENT--PERRL, EOMI, mucous membranes and oropharynx mildly dry Neck--supple. No JVD. No bruits. Thyroid normal, trachea midline, no adenopathy. Heart--normal S1 and S2. No murmurs, rubs or gallops. Lungs--clear bilaterally, no respiratory distress, no accessory muscle use. Abdomen--normal bowel sounds and soft. Extremities--no cyanosis or clubbing. No edema. Dermatologic--normal skin turgor, normal color, no abnormal lymph nodes, no rash. Neurologic--cranial nerves II through XII grossly intact. Rheumatologic--normal range of motion. Psychiatric--normal affect. Results & Data Results & Data Vital Signs (Past 12 Hours) Vital Signs Temp Pulse Resp BP Pulse Ox O2 Del Method 05/22/24 08:18 97.5 F L 60 18 151/81 H 95 Room Air 05/22/24 03:28 98.1 F 60 16 125/80 93 Room Air 05/21/24 23:34 97.7 F 58 L 18 131/83 93 Room Air PG Care Time/CCT Total # of Minutes Spent Total Time Spent with Patient: Total time spent is greater than 50% in coordination of care (as documented) at patient's floor/unit and/or counseling patient: Coding Level of Care Code 13497 SUB INP/OBS CARE 2/35MIN Diagnoses Stroke I63.9 Brain mass G93.89 Acute bronchitis J20.9 Time Spent (min) 35
--- NOTE | 2024-05-22 10:34 | Neurology Consultation ---
Date of Consultation May 22, 2024 Assessment & Plan (1) Stroke: (2) Brainstem lesion: Plan 79-year-old male presenting with an episode of dizziness and blurry vision, as well as a recent fall in the context of alcohol and NyQuil consumption, with a recent upper respiratory infection, currently symptomatically resolved. Brain MRI did reveal a probable subacute ischemic infarct within the right ortega radiata, as well as an incidental 1.2 cm rounded, well-circumscribed lesion at the right pontomedullary junction, likely intra-axial, without associated contrast-enhancement. The lesion may be a low-grade neoplasm. An extra-axial location cannot be completely excluded. The observed small ischemic stroke is likely due to small vessel arteriosclerosis. Patient's lipids look very good, without use of a statin or other cholesterol-lowering medication. His LDL 69. Further, his CT angiography reveals no evidence of significant plaque or stenosis. Nonetheless, starting a low-dose of a statin is not completely unreasonable given the degree of observed chronic cerebrovascular change on recent small stroke. He has a normal hemoglobin A1c. He does have a history of hypertension and is prescribed lisinopril and metoprolol. He does use nicotine pouches. Agree with aspirin 81 mg/day and atorvastatin 40 mg/day. May allow for permissive hypertension acutely. May restart his lisinopril and metoprolol at time of discharge. Additional counseling given to the patient regarding cessation of nicotine products. He may follow-up with his primary care physician for ongoing monitoring of cardiovascular disease risk factors. Consider obtaining outpatient ambulatory cardiac monitoring. Patient may follow-up with myself or an DEON in neurology clinic for further monitoring of the observed brainstem lesion. Would plan for additional outpatient imaging monitoring. Would also recommend a nonurgent neurosurgical consultation for an opinion regarding the right pontomedullary lesion which may be a low-grade neoplasm. Please call with any questions. History of Present Illness Reason for Consultation: stroke Requesting Physician: Robel Attending Physician: Hans Dhillon MD History of Present Illness The patient is a 79-year-old male who presented to the emergency department yesterday morning with a complaint of transient blurry vision, and dizziness that was present upon awakening. There was no associated diplopia, dysarthria, dysphagia, or weakness of the limbs. The episode resolved within a few minutes. He had a upper respiratory infection the previous week characterized by frequent coughing. He typically consumes 2-3 shots of bourbon a night and had also taken some NyQuil and apparently had a fall at home a few nights ago without associated loss of consciousness, weakness, or other neurologic signs or symptoms. He was able to get up on his own. He currently feels fine with no lingering neurologic symptoms. He denies significant headache, muscle pain, or vision disturbance. The CT of the head revealed chronic small vessel ischemic disease with a possible subacute lacunar infarct within the left parietal subcortical white matter. CT angiography of the head and neck were unremarkable. A noncontrast brain MRI revealed a probable small subacute infarct within the right ortega radiata, bright on DWI, no loss of signal on ADC, bright on T2 and FLAIR sequences. No evidence of subacute infarct within the left parietal region. There was also a 1.2 cm rounded lesion at the right pontomedullary junction. A follow-up gadolinium-enhanced brain MRI was completed overnight. The lesion does not enhance and appears to be extra-axial. I did review the images directly with Dr. Sprague, radiology. The imaging characteristics are not very specific although the lesion does not appear to be infiltrative or aggressive. The lesion is probably intra-axial although an extra-axial lesion cannot be completely excluded. The imaging characteristics are not consistent with meningioma, glioma, or epidermoid and is likely an incidental finding in the context of his presentation. A thrombosed vertebral artery aneurysm is unlikely given his unremarkable CT angiography. Allergies Allergy/AdvReac Type Severity Reaction Status Date / Time No Known Allergies Allergy Unknown Verified 10/03/06 17:08 Home Medications Medication Instructions Recorded Confirmed Type allopurinol 300 mg tablet 300 mg PO DAILY 05/21/24 05/21/24 History hydrochlorothiazide 25 mg tablet 25 mg PO DAILY 05/21/24 05/21/24 History lisinopril 20 mg tablet 20 mg PO DAILY 05/21/24 05/21/24 History metoprolol tartrate 25 mg tablet 25 mg PO BID 05/21/24 05/21/24 History Patient History Medical History HTN (hypertension) Gout Surgical History History of prostate surgery History of bladder surgery Family History Other Cancer Social History Smoking Status: Former smoker Tobacco Type: Smokeless Tobacco (Dip or Chew) Second Hand Exposure: No; Do You Dip or Chew Tobacco: Yes; Hx Alcohol Use: Yes Alcohol type: hard liquor Hx Substance Use: No Preferred Language: Croatian Communication Ability: Effective Denture Packer Required: No Beliefs That Will Affect Care: None marital status: Current Living Situation: Spouse Feels Safe at Home: Yes Assistive Devices: None Review of Systems Constitutional: no fever and no chills Eyes: no blind spots and no diplopia Ear, Nose, Mouth, Throat: no hearing loss Respiratory: as per Subjective / HPI Cardiovascular: no chest pain and no palpitations Gastrointestinal: no nausea and no vomiting Genitourinary: no urinary incontinence Musculoskeletal: no neck pain and no myalgia Integumentary: no rash and no lesions Neurologic: as per Subjective / HPI Psychiatric: no depression and no anxiety Hematologic / Lymphatic: no easy bleeding and no easy bruising Exam (Neuro) Constitutional: well developed and well nourished; no acute distress Eyes: normal visual aguiar by confrontation, PERRL and EOM intact bilaterally; no nystagmus Neurologic: Oriented to:: Person, Place and Time Memory: Short Term Intact and Remote Intact Attention: Span Intact and Concentration Intact Speech Fluency: negative Dysarthria or Dysfluency Speech Aphasia: negative Aphasia Fund of Knowledge: Current Events, Past History and Vocabulary Cranial Nerv es: Normal II, III, IV, , V, VII, VIII, IX, X, XI and XII Motor Strength: Normal Lower Extremities and Normal Upper Extremities Motor Tone: Normal Lower Extremities and Normal Upper Extremities Muscle Bulk/Involuntary Movements: No Involuntary Movements; negative Muscle Atrophy Sensation: Light Touch Intact, Pain/Temperature Intact and Proprioception Intact Coordination: Normal; negative Limited Balance, Dysdiadochokinesia, Finger-Nose Abnormal or Heel-Terrell Abnormal Deep Tendon Reflexes: Rt Triceps: 2+, Lt Triceps: 2+, Rt Biceps: 2+, Lt Biceps: 2+, Rt Brachioradialis: 2+, Lt Brachioradialis: 2+, Rt Patellar: 2+, Lt Patellar: 2+, Rt Ankle: 1+ and Lt Ankle: 1+ Special Tests: negative Babinski Present Gait: Normal Station and Gait Results & Data Vital Signs (Past 12 Hours) Vital Signs Temp Pulse Resp BP Pulse Ox O2 Del Method 05/22/24 08:18 36.4 C L 60 18 151/81 H 95 Room Air 05/22/24 03:28 36.7 C 60 16 125/80 93 Room Air 05/21/24 23:34 36.5 C 58 L 18 131/83 93 Room Air Laboratory Results WBC 10.54, hemoglobin 15.6, hematocrit 46.8, platelet count 254, sodium 133, potassium 4.0, BUN 18, creatinine 1.15, glucose 101, hemoglobin A1c 5.4, AST 23, ALT 20, triglycerides 129, cholesterol 145, LDL 69, HDL 50, TSH 3.245 Diagnostic Findings An echocardiogram revealed normal left ventricular size and systolic function, no regional wall motion abnormalities, mild concentric LVH, mild left atrial dilation, no [id number] shunt. An electrocardiogram revealed sinus bradycardia with first-degree AV block. Coding Level of Care Code 29508 INT INP/OBS CARE MIN Diagnoses Stroke I63.9 Brainstem lesion G93.9 Time Spent (min) 90 Comment Total time includes patient contact, chart review, counseling, note preparation
[2024-05-22] MEDS ORDERED: STROKE PATIENT DISCHARGE STA (12:33)
--- NOTE | 2024-05-22 12:39 | Discharge Summary ---
Date of Service May 22, 2024 Admission HPI Per Admitting Provider This is a pleasant 79-year-old male who last week while walking his dog in the [place] tripped and had a mechanical fall. Over the last several days he has had a cough which has been productive with greenish-yellow sputum. Therefore, the last several nights he been taking NyQuil at night. In addition he typically has a shot of bourbon every night. 2 or 3 nights ago he had approximately 3 shots of bourbon in combination with the NyQuil and had a fall through the night. He sustained no injuries. Today he woke up and had some mildly blurry vision. This seemed to resolve after his coffee. Upon speaking to his and his son who is convinced to come to the ER for further evaluation and workup. In the ER he had a negative bio fire. His laboratory studies were essentially unremarkable. Chest x-ray was negative. He had a noncontrast CT of the brain which showed a possible left-sided 8 mm parietal infarct. Once this was obtained he underwent CTAs of the head and neck which were negative for critical stenoses or significant findings. He received 325 of aspirin in the ER. We were notified admit the patient for further workup. We have ordered a sputum culture, oral azithromycin, placed the patient on the stroke protocol. With consulted neurology. Will continue 81 of aspirin daily. Echocardiogram. MRI of the brain. Will check a repeat troponin for completeness. Will start the patient on statin therapy as well. Will hold the patient's antihypertensives and rule out for permissive hypertension over the next 24 hours pending MRI results and stroke workup. Vital signs are stable but he is noted to be mildly bradycardic at 53 bpm but he is on metoprolol at home. Will see what his heart rate does with this on hold. With also ordered a TSH. Admission Exam (Per Admitting) Constitutional The patient is awake, alert and oriented 3, well developed and well nourished, normocephalic and atraumatic, lying in bed and in no acute distress. HEENT--PERRL, EOMI, mucous membranes and oropharynx mildly dry Neck--supple. No JVD. No bruits. Thyroid normal, trachea midline, no adenopathy. Heart--normal S1 and S2. No murmurs, rubs or gallops. Lungs--clear bilaterally, no respiratory distress, no accessory muscle use. Abdomen--normal bowel sounds and soft. Extremities--no cyanosis or clubbing. No edema. Dermatologic--normal skin turgor, normal color, no abnormal lymph nodes, no rash. Neurologic--cranial nerves II through XII grossly intact. Rheumatologic--normal range of motion. Psychiatric--normal affect. Discharge Data Consultations 05/21/24 09:37 ED Decision to Admit Stat 05/21/24 10:32 Consult Neurology Routine Hospital Course (1) Stroke: Patient admitted with some dizziness and strokelike symptoms lightheadedness and blurry vision. 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 Probable acute bronchitis. Productive sputum with cough over the last 3 to 4 days. Chest x-ray is negative. Sputum cultures ordered. Oral azithromycin for now. Other issues: 4. 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 Will monitor carefully for withdrawal at this time there is no evidence of that and if he is only drinking 1 drink a day he is probably low risk for withdrawal. 5. Ex tobacco abuse in the form of chewing tobacco. Currently uses nicotine po uches. 6. History of hypertension. Will allow for permissive hypertension during stroke workup. 7. History of gout in the past. 8. Sinus bradycardia. 53 bpm. On beta-asael. Will hold this at this time for the stroke protocol permissive hypertension tension. Check a TSH in the AM. Plan: As described above. Please refer to orders for further planning. Plan d/c home Coding Level of Care Code 13610 INP/OBS DISCH >30 MIN Diagnoses Stroke I63.9 Brain mass G93.89 Acute bronchitis J20.9 Time Spent (min) 35
--- NOTE | 2024-05-22 12:44 | Pharmacy Report ---
- Date of Service May 22, 2024 - Pharmacy CVA/TIA Medication Review Medications to Prevent Stroke handout has been added to the patients discharge packet. Antiplatelet(s) * aspirin 81mg PO daily Cholesterol * High intensity statin: atorvastatin 40 mg daily DVT Prophylaxis * SCD knee Therapeutic Anticoagulation * No history of Afib/Aflutter noted Type 2 Diabetes * Patient does not have T2DM
== END 2024-05-22 13:37 | disposition home or self-care (01) ==
LOC: ED 06:58 → 4W 06:58 → SUATTDRO 10:40 → 4W 11:28